=== PATIENT | female | born 1995 | race Two or more races ===

== ENCOUNTER 2018-01-17 03:39 | Emergency (ER) | payer BC ==
[~2018-01-17] VITALS: Ht 149.9 cm; Wt 79.8 kg
[2018-01-17 04:13] LABS: BASO # 0.1 x10^3/uL (0.0-0.2); BASO % 1 % (0-3); EOS # 0.2 x10^3/uL (0.0-0.7); EOS % 2 % (0-3); HEMATOCRIT 41.1 % (36.0-47.0); HEMOGLOBIN 13.9 g/dL (12.0-15.5); LYMPH # 3.4 x10^3/uL (1.0-4.8); LYMPH % 31 % (24-48); MEAN CORPUSCULAR HEMOGLOBIN 27 pg (25-35); MEAN CORPUSCULAR HGB CONC 34 g/dL (31-37); MEAN CORPUSCULAR VOLUME 79 fL (79-100); MONO # 0.7 x10^3/uL (0.0-1.1); MONO % 6 % (0-9); NEUT # 6.6 x10^3uL (1.8-7.7); NEUT % 61 % (31-73); PLATELET COUNT 328 x10^3/uL (140-400); RED BLOOD COUNT 5.22 x10^6/uL (3.50-5.40); RED CELL DISTRIBUTION WIDTH 15.7 % (11.5-14.5)
[2018-01-17 04:33] LABS: CALCIUM 9.3 mg/dL (8.5-10.1); CREATININE 0.9 mg/dL (0.6-1.0); GFR 77.6; POTASSIUM 3.5 mmol/L (3.5-5.1)
[2018-01-17 04:39] LABS: ALBUMIN 3.8 g/dL (3.4-5.0); ALBUMIN/GLOBULIN RATIO 0.8 (1.0-1.7); TOTAL BILIRUBIN 0.2 mg/dL (0.2-1.0); TOTAL PROTEIN 8.4 g/dL (6.4-8.2)
[2018-01-17 04:53] VITALS: BP 124/73
[2018-01-17] MEDS ORDERED: OMEP40CA5 PO (04:57)
--- NOTE | 2018-01-17 05:08 | PHYS DOC ---
Past Medical History Past Medical History: No Pertinent History Past Surgical History: No Surgical History Alcohol Use: Occasionally Drug Use: None Adult General Chief Complaint Chief Complaint: CHEST PAIN HPI HPI Patient is a 22 year old female presenting with complaints of chest pain as well as back pain. She's had this for 2 or 3 days it feels like a pressure that radiates to her back due to a chief she's been under a lot of stress she lost her mother as well as a 5-month-old baby in the last couple of months. She says she is not having any pleuritic pain and really not that much shortness of breath at all. It is just pressure there is some burning sensation as well in the upper abdomen She is newly has been for approximately 3 weeks she does not recall her exact last menstrual period tried to give Valium from [place] until they go that they picked up a few months back but she threw it up Review of Systems Review of Systems Constitutional: Denies fever or chills [] Eyes: Denies change in visual acuity, redness, or eye pain [] HENT: Denies nasal congestion or sore throat [] [] Integument: Denies rash or skin lesions [] Neurologic: Denies headache, focal weakness or sensory changes [] Endocrine: Denies polyuria or polydipsia [] All other systems were reviewed and found to be within normal limits, except as documented in this note. Current Medications Current Medications Current Medications Medications (Trade) Dose Ordered Sig/Mathew Start Time Stop Time Status Last Admin Dose Admin Lorazepam (Ativan) 1 mg 1X ONCE 01/17/18 04:30 01/17/18 04:31 DC 01/17/18 04:22 1 MG Allergies Allergies Allergies Coded Allergies Type Severity Reaction Last Updated Verified No Known Drug Allergies 01/17/18 No Physical Exam Physical Exam Constitutional: Well developed, well nourished, no acute distress, non-toxic appearance. [] HENT: Normocephalic, atraumatic, bilateral external ears normal, oropharynx moist, no oral exudates, nose normal. [] Eyes: PERRLA, EOMI, conjunctiva normal, no discharge. [] Neck: Normal range of motion, no tenderness, supple, no stridor. [] Cardiovascular:Heart rate regular rhythm, no murmur [] Lungs & Thorax: Bilateral breath sounds clear to auscultation [] Abdomen: Bowel sounds normal, soft, mild epigastric tenderness, no masses, no pulsatile masses. [] Skin: Warm, dry, no erythema, no rash. [] Back: No tenderness, no CVA tenderness. [] Extremities: No tenderness, no cyanosis, no clubbing, ROM intact, no edema. [] Neurologic: Alert and oriented X 3, normal motor function, normal sensory function, no focal deficits noted. [] Psychologic: Affect normal, judgement normal, anxiety noted Current Patient Data Vital Signs Vital Signs Date Time Temp Pulse Resp B/P (MAP) Pulse Ox O2 Delivery O2 Flow Rate FiO2 01/17/18 03:57 98.8 97 26 163/92 (115) 100 Room Air 98.8 Lab Values Laboratory Tests Test 01/17/18 04:03 White Blood Count 11.0 x10^3/uL (4.0-11.0) Red Blood Count 5.22 x10^6/uL (3.50-5.40) Hemoglobin 13.9 g/dL (12.0-15.5) Hematocrit 41.1 % (36.0-47.0) Mean Corpuscular Volume 79 fL (79-100) Mean Corpuscular Hemoglobin 27 pg (25-35) Mean Corpuscular Hemoglobin Concent 34 g/dL (31-37) Red Cell Distribution Width 15.7 % (11.5-14.5) H Platelet Count 328 x10^3/uL (140-400) Neutrophils (%) (Auto) 61 % (31-73) Lymphocytes (%) (Auto) 31 % (24-48) Monocytes (%) (Auto) 6 % (0-9) Eosinophils (%) (Auto) 2 % (0-3) Basophils (%) (Auto) 1 % (0-3) Neutrophils # (Auto) 6.6 x10^3uL (1.8-7.7) Lymphocytes # (Auto) 3.4 x10^3/uL (1.0-4.8) Monocytes # (Auto) 0.7 x10^3/uL (0.0-1.1) Eosinophils # (Auto) 0.2 x10^3/uL (0.0-0.7) Basophils # (Auto) 0.1 x10^3/uL (0.0-0.2) D-Dimer (Guera) 0.51 ug/mlFEU (0.00-0.50) H Maternal Serum HCG Beta Subunit 7364 mIU/mL (0-5) H Sodium Level 137 mmol/L (136-145) Potassium Level 3.5 mmol/L (3.5-5.1) Chloride Level 102 mmol/L (98-107) Carbon Dioxide Level 26 mmol/L (21-32) Anion Gap 9 (6-14) Blood Urea Nitrogen 9 mg/dL (7-20) Creatinine 0.9 mg/dL (0.6-1.0) Estimated GFR (Cockcroft-Gault) 77.6 BUN/Creatinine Ratio 10 (6-20) Glucose Level 183 mg/dL (70-99) H Calcium Level 9.3 mg/dL (8.5-10.1) Total Bilirubin 0.2 mg/dL (0.2-1.0) Aspartate Amino Transferase (AST) 19 U/L (15-37) Alanine Aminotransferase (ALT) 33 U/L (14-59) Alkaline Phosphatase 107 U/L (46-116) Troponin I Quantitative < 0.017 ng/mL (0.000-0.055) Total Protein 8.4 g/dL (6.4-8.2) H Albumin 3.8 g/dL (3.4-5.0) Albumin/Globulin Ratio 0.8 (1.0-1.7) L Lipase 121 U/L (73-393) Laboratory Tests 01/17/18 04:03 Laboratory Tests 01/17/18 04:03 EKG EKG [] Interpretation Time: Normal sinus rhythm rate is 68 no acute ischemic changes noted interpreted by me time of encounter Radiology/Procedures Radiology/Procedures [] Impressions: X-ray by my read negative acute normal bones normal heart normal lungs Course & Med Decision Making Course & Med Decision Making Pertinent Labs and Imaging studies reviewed. (See chart for details) []22-year-old female who is newly presenting with chest pain pressure radiating to the back for the last 2 or 3 days associated with significant component of anxiety. In the emergency room I did order initial lab work prior to being notified about this patient's status. I did give a milligram of Ativan as well she slept comfortably when I woke up at 5 AM she said that she had no further symptoms she was feeling much better her heart rate was in the 70s her oxygen level remained in the mid to high 90s throughout no tachycardia and no hypoxia. She does not having any pleuritic pain. I had ordered a d-dimer upfront and it was 0.51 but because she is this is very likely to be within normal range for her. I have very low suspicion for PE in addition the perc level is negative for this patient as well. I feel that given her early the risk of radiation is greater than 8 chance of a missed PE. I did review this risk-benefit ratio with her and she understands. Prescription for omeprazole and Tylenol recommendation was given. Ultimately I suspect a component of anxiety as well as GERD Dragon Disclaimer Dragon Disclaimer This electronic medical record was generated, in whole or in part, using a voice recognition dictation system. Departure Departure Impression: Primary Impression: Chest pain Disposition: 01 HOME, SELF-CARE Condition: STABLE Patient Instructions: Chest Pain (Nonspecific), [id number] Scripts Omeprazole (OMEPRAZOLE) 40 Mg Capsule.dr 1 CAP PO DAILY, #30 CAP 0 Refills Prov: SCARLETT HERRING MD 01/17/18 SCARLETT HERRING MD Jan 17, 2018 05:08
--- NOTE | 2018-01-17 07:41 | RAD ---
Portable chest, 01/17/2018: HISTORY: Chest pain The heart size and pulmonary vascularity are normal. No pulmonary infiltrate is seen. There is no evidence of pleural fluid. IMPRESSION: No acute cardiopulmonary abnormality is detected. Electronically signed by: Amaury Lynne MD (01/17/2018 7:38 AM) [facility]
--- NOTE | 2018-01-18 06:12 | EKG ---
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
== END 2018-01-17 05:16 | disposition home or self-care (01) ==
LOC: ER 03:39
DX: O26.891 Other specified pregnancy related conditions, first trimester (principal); R07.89 Other chest pain; R10.13 Epigastric pain; Z3A.01 Less than 8 weeks gestation of pregnancy
CPT/HCPCS: 36415; 71045; 80053; 83690; 84484; 84702; 85025; 85379; 93005; 96374; 99285; J2060

== ENCOUNTER → 2019-01-30 | Outpatient (CLI) | payer SELFPAY ==
[2018-05-07 15:00] VITALS: BP 121/71
[~2019-01-30] MED LIST: CEPH-264 PO; OMEP40CA5 PO
[2019-01-30 13:52] LABS: BASO # 0.1 x10^3/uL (0.0-0.2); BASO % 1 % (0-3); EOS # 0.4 x10^3/uL (0.0-0.7); EOS % 5 % (0-3); HEMATOCRIT 40.9 % (36.0-47.0); LYMPH # 2.3 x10^3/uL (1.0-4.8); LYMPH % 27 % (24-48); MEAN CORPUSCULAR HEMOGLOBIN 28 pg (25-35); MEAN CORPUSCULAR HGB CONC 34 g/dL (31-37); MEAN CORPUSCULAR VOLUME 81 fL (79-100); MONO # 0.5 x10^3/uL (0.0-1.1); MONO % 6 % (0-9); NEUT # 5.1 x10^3/uL (1.8-7.7); NEUT % 61 % (31-73); PLATELET COUNT 316 x10^3/uL (140-400); RED BLOOD COUNT 5.08 x10^6/uL (3.50-5.40); RED CELL DISTRIBUTION WIDTH 14.4 % (11.5-14.5); WHITE BLOOD COUNT 8.4 x10^3/uL (4.0-11.0)
[2019-01-30 14:04] LABS: ALBUMIN 3.5 g/dL (3.4-5.0); ALBUMIN/GLOBULIN RATIO 0.8 (1.0-1.7); CALCIUM 9.1 mg/dL (8.5-10.1); CREATININE 0.8 mg/dL (0.6-1.0); GFR 88.1; POTASSIUM 3.8 mmol/L (3.5-5.1); TOTAL BILIRUBIN 0.3 mg/dL (0.2-1.0); TOTAL PROTEIN 7.9 g/dL (6.4-8.2)
[2019-01-30 14:49] LABS: FREE T4 1.13 ng/dL (0.76-1.46); THYROID STIM HORMONE (TSH) 2.177 uIU/mL (0.358-3.74)
[2019-01-31 00:11] LABS: HEMOGLOBIN A1C 5.3 % (4.8-5.6)
[2019-01-31 02:11] LABS: ESTRADIOL LEVEL 60.6 pg/mL (.)
[2019-02-02 14:13] LABS: TESTOSTERONE FREE 0.99 ng/dL (0.10-0.85)
== END | disposition home or self-care (01) ==
LOC: LAB 13:23
PROVIDERS: ATTEND Obstetrics & Gynecology
DX: R68.82 Decreased libido (principal); R94.6 Abnormal results of thyroid function studies; R73.09 Other abnormal glucose
CPT/HCPCS: 36415; 80053; 82627; 82670; 83036; 84402; 84403; 84439; 84443; 85025

== ENCOUNTER → 2019-11-18 | Outpatient (CLI) | payer OTHER ==
[2018-05-07 15:00] VITALS: BP 121/71
[~2019-11-18] MED LIST changes: +OMEP40CA45 PO; -OMEP40CA5 PO
== END | disposition home or self-care (01) ==
LOC: LAB 10:53
PROVIDERS: ATTEND Internal Medicine Pulmonary Disease
DX: Z20.828 Contact with and (suspected) exposure to other viral communicable diseases (principal); R51 Headache; R05 Cough
CPT/HCPCS: U0003-CS

== ENCOUNTER → 2020-02-26 | Outpatient (CLI) | payer OTHER ==
[2018-05-07 15:00] VITALS: BP 121/71
== END ==
LOC: LAB 13:43
PROVIDERS: ATTEND Obstetrics & Gynecology
DX: Z32.01 Encounter for pregnancy test, result positive (principal)
CPT/HCPCS: 36415; 84702

== ENCOUNTER 2020-03-23 08:04 | Emergency (ER) | payer OTHER ==
[~2020-03-23] VITALS: Ht 149.9 cm; Wt 81.0 kg
[2020-03-23 08:20] VITALS: BP 124/67
[2020-03-23] MEDS ORDERED: FAMOTIDINE 20 MG/2 ML VIAL IVP ONE (08:30)
[2020-03-23] MEDS ORDERED: IV NORMAL SALINE 1000ML BAG 1,000 ML IV ONE (08:30)
[2020-03-23] MEDS ORDERED: ONDANSETRON PF 4 MG/2 ML VIAL. IVP ONE (08:30)
[2020-03-23 08:39] LABS: BILIRUBIN,URINE NEGATIVE (NEG); CLARITY,URINE CLEAR; COLOR,URINE YELLOW; NITRITE,URINE NEGATIVE (NEG); PROTEIN,URINE NEGATIVE (NEG-TRACE); UROBILINOGEN,URINE 0.2 mg/dL (0.2 mg/dL)
[2020-03-23 08:41] LABS: BASO # 0.1 x10^3/uL (0.0-0.2); BASO % 1 % (0-3); EOS # 0.2 x10^3/uL (0.0-0.7); EOS % 1 % (0-3); HEMATOCRIT 40.9 % (36.0-47.0); HEMOGLOBIN 14.1 g/dL (12.0-15.5); LYMPH % 28 % (24-48); MEAN CORPUSCULAR HEMOGLOBIN 29 pg (25-35); MEAN CORPUSCULAR HGB CONC 35 g/dL (31-37); MEAN CORPUSCULAR VOLUME 83 fL (79-100); MONO # 0.6 x10^3/uL (0.0-1.1); MONO % 6 % (0-9); NEUT % 65 % (31-73); PLATELET COUNT 290 x10^3/uL (140-400); RED BLOOD COUNT 4.94 x10^6/uL (3.50-5.40); RED CELL DISTRIBUTION WIDTH 13.7 % (11.5-14.5); WHITE BLOOD COUNT 10.9 x10^3/uL (4.0-11.0)
[2020-03-23 08:50] LABS: BACTERIA,URINE 0 /HPF (0-FEW); RBC,URINE 0 /HPF (0-2); WBC,URINE 0 /HPF (0-4)
[2020-03-23 08:50] LABS: CALCIUM 9.3 mg/dL (8.5-10.1); CREATININE 0.7 mg/dL (0.6-1.0); POTASSIUM 3.6 mmol/L (3.5-5.1)
[2020-03-23 08:56] LABS: ALBUMIN 3.8 g/dL (3.4-5.0); ALBUMIN/GLOBULIN RATIO 0.8 (1.0-1.7); TOTAL BILIRUBIN 0.4 mg/dL (0.2-1.0); TOTAL PROTEIN 8.3 g/dL (6.4-8.2)
--- NOTE | 2020-03-23 09:26 | PHYS DOC ---
Past Medical History Past Medical History: Additional Past Medical Histor: Past Surgical History: Cholecystectomy, Smoking Status: Never Smoker Alcohol Use: None Drug Use: None General Adult EDM: Chief Complaint: ABDOMINAL PAIN IN HPI: HPI: Patient is a 24 year old female who presents with abdominal pain in . She is 7 weeks based on LMP of January 29, 2020. Her first OB appointment is scheduled for tomorrow with Dr. Bowen ([facility]), She describes cramping abdominal pain of 6/10 that has been ongoing for 3 weeks. She describes a pulsing/pounding headache with pain of 9/10 that has been constant for 3 weeks. She has associated shortness of breath and dizziness. She took ibuprofen before someone told her not to take it during . She is unable to take tylenol because it makes her cough and short of breath so she has had minimal pain relief options. Reports lots of nausea and vomiting, more so than in pr evious pregnancies. Patient and also report that her stomach seems to have enlarged at a quicker pace than previous pregnancies. No history of loss of consciousness, falls, or trauma. No vaginal bleeding. No discharge. Review of Systems: Review of Systems: Constitutional: Denies fever or chills Eyes: Denies redness or eye pain, denies change in vision HENT: Denies nasal congestion or sore throat Respiratory: Denies cough, Reports shortness of breath Cardiovascular: Denies chest pain or palpitations GI: Denies abdominal pain, nausea, or vomiting : Denies dysuria or hematuria, Denies vaginal bleeding or discharge Musculoskeletal: Denies back pain or joint pain Integument: Denies rash or skin lesions Neurologic: Denies focal weakness or sensory changes, Reports headache Complete systems were reviewed and found to be within normal limits, except as documented in this note. Current Medications: Current Medications Medications (Trade) Dose Ordered Sig/Mathew Start Time Stop Time Status Last Admin Dose Admin Famotidine (Pepcid Vial) 20 mg 1X ONCE 03/23/20 08:30 03/23/20 08:31 DC 03/23/20 08:59 20 MG Ondansetron HCl (Zofran) 4 mg 1X ONCE 03/23/20 08:30 03/23/20 08:31 DC 03/23/20 08:59 4 MG Sodium Chloride 1,000 ml @ 1,000 mls/hr 1X ONCE 03/23/20 08:30 03/23/20 09:29 03/23/20 08:59 1,000 MLS/HR Allergies: Allergies: Allergies Coded Allergies Type Severity Reaction Last Updated Verified No Known Drug Allergies 05/06/18 No Physical Exam: PE: Constitutional: Well developed, well nourished, no acute distress, non-toxic appearance HENT: Normocephalic, atraumatic Eyes: PERRL, EOMI, conjunctiva normal, no discharge Neck: Normal range of motion, no tenderness, supple Lungs & Thorax: No respiratory distress, equal chest rise and fall Abdomen: Soft, no tenderness Skin: Warm, dry, no erythema, no rash Back: No tenderness, no CVA tenderness Extremities: No tenderness, ROM intact, no edema Neurologic: Alert and oriented X 3, normal motor function, normal sensory function, no focal deficits noted Psychologic: Affect normal, judgment normal Current Patient Data: Labs: Laboratory Tests Test 03/23/20 08:17 03/23/20 08:23 03/23/20 08:35 Urine Collection Type Unknown Urine Color Yellow Urine Clarity Clear Urine pH 6.0 (<5.0-8.0) Urine Specific [place] 1.010 (1.000-1.030) Urine Protein Negative mg/dL (NEG-TRACE) Urine Glucose (UA) Negative mg/dL (NEG) Urine Ketones (Stick) Negative mg/dL (NEG) Urine Blood Negative (NEG) Urine Nitrite Negative (NEG) Urine Bilirubin Negative (NEG) Urine Urobilinogen Dipstick 0.2 mg/dL (0.2 mg/dL) Urine Leukocyte Esterase Negative (NEG) Urine RBC 0 /HPF (0-2) Urine WBC 0 /HPF (0-4) Urine Squamous Epithelial Cells Few /LPF Urine Bacteria 0 /HPF (0-FEW) Urine Mucus Mod /LPF POC Urine HCG, Qualitative Hcg positive (Negative) White Blood Count 10.9 x10^3/uL (4.0-11.0) Red Blood Count 4.94 x10^6/uL (3.50-5.40) Hemoglobin 14.1 g/dL (12.0-15.5) Hematocrit 40.9 % (36.0-47.0) Mean Corpuscular Volume 83 fL (79-100) Mean Corpuscular Hemoglobin 29 pg (25-35) Mean Corpuscular Hemoglobin Concent 35 g/dL (31-37) Red Cell Distribution Width 13.7 % (11.5-14.5) Platelet Count 290 x10^3/uL (140-400) Neutrophils (%) (Auto) 65 % (31-73) Lymphocytes (%) (Auto) 28 % (24-48) Monocytes (%) (Auto) 6 % (0-9) Eosinophils (%) (Auto) 1 % (0-3) Basophils (%) (Auto) 1 % (0-3) Neutrophils # (Auto) 7.0 x10^3/uL (1.8-7.7) Lymphocytes # (Auto) 3.0 x10^3/uL (1.0-4.8) Monocytes # (Auto) 0.6 x10^3/uL (0.0-1.1) Eosinophils # (Auto) 0.2 x10^3/uL (0.0-0.7) Basophils # (Auto) 0.1 x10^3/uL (0.0-0.2) Sodium Level 133 mmol/L (136-145) L Potassium Level 3.6 mmol/L (3.5-5.1) Chloride Level 100 mmol/L (98-107) Carbon Dioxide Level 25 mmol/L (21-32) Anion Gap 8 (6-14) Blood Urea Nitrogen 5 mg/dL (7-20) L Creatinine 0.7 mg/dL (0.6-1.0) Estimated GFR (Cockcroft-Gault) 102.0 BUN/Creatinine Ratio 7 (6-20) Glucose Level 78 mg/dL (70-99) Calcium Level 9.3 mg/dL (8.5-10.1) Magnesium Level 2.0 mg/dL (1.8-2.4) Total Bilirubin 0.4 mg/dL (0.2-1.0) Aspartate Amino Transferase (AST) 16 U/L (15-37) Alanine Aminotransferase (ALT) 28 U/L (14-59) Alkaline Phosphatase 78 U/L (46-116) Total Protein 8.3 g/dL (6.4-8.2) H Albumin 3.8 g/dL (3.4-5.0) Albumin/Globulin Ratio 0.8 (1.0-1.7) L Lipase 65 U/L (73-393) L Laboratory Tests 03/23/20 08:35 Laboratory Tests 03/23/20 08:35 Vital Signs: Vital Signs Date Time Temp Pulse Resp B/P (MAP) Pulse Ox O2 Delivery O2 Flow Rate FiO2 03/23/20 08:20 98.2 92 16 124/67 (86) 100 Room Air 98.2 Course & Med Decision Making: Course & Med Decision Making Pertinent Labs and Imaging studies reviewed. (See chart for details) Patient is a 24 year old female who presents with cramping abdominal pain in , constant headache, shortness of breath, and dizziness for 3 weeks. She is 7 weeks based on LMP with history of high risk pregnancies. U/S and pelvic exam performed. Labs ordered. Dragon Disclaimer: Dragon Disclaimer: This electronic medical record was generated, in whole or in part, using a voice recognition dictation system. Departure Departure Impression: Primary Impression: Abdominal pain during Qualified Codes: O26.891 - Other specified related conditions, first trimester; R10.9 - Unspecified abdominal pain Additional Impressions: Dizziness Headache Qualified Codes: R51.9 - Headache, unspecified Bacterial vaginosis in Disposition: 01 DC HOME SELF CARE/HOMELESS Condition: STABLE Referrals: Trisha GARRIDO MD (PCP) Patient Instructions: Abdominal Pain During , [id number], Bacterial Vaginosis, [id number], Dizziness, [id number]-[id number], Headache, FAQs Scripts Metronidazole (FLAGYL) 500 Mg Tablet 500 MG PO BID for Vaginosis, #14 TAB Prov: ROCÍO FLOREZ DO 03/23/20 Ondansetron (ONDANSETRON ODT) 4 Mg Tab.rapdis 1 TAB PO PRN Q6-8HRS PRN for NAUSEA, #16 TAB Prov: ROCÍO FLOREZ DO 03/23/20 ROCÍO FLOREZ DO Mar 23, 2020 09:26
--- NOTE | 2020-03-23 10:13 | RAD ---
EXAM: First Trimester OB Ultrasound INDICATION: Reason: abdominal pain in preg 8 weeks / Spl. Instructions: / History: TECHNIQUE: Real-time first trimester obstetrical ultrasound was performed with permanent freeze-frame documentation. COMPARISON: None. FINDINGS: GESTATIONAL SAC: Teardrop shaped deformity to the gestational sac is present. POLE: Unremarkable. Yolk sac visualized. CROWN RUMP LENGTH: 2.2 cm HEART RATE: 169 bpm PLACENTA: Too early to adequately assess. MATERNAL UTERUS: Uterus measures 11 x 6.9 x 6.2 cm. Cervical nabothian cysts are incidentally noted. MATERNAL ADNEXA: Normal ovaries. Right ovary measures 2.3 x 1.5 x 1.9 cm and demonstrates normal blood flow. Left ovary measures 3.8 x 2.0 x 2.0 cm, only seen transabdominally. Internal blood flow not adequately assessed on transabdominal imaging but no enlargement of the ovary is seen to suggest torsion. AGE/DATES: Gestational Age by LMP: 7 weeks 5 days Gestational Age by US: 8 weeks 6 days EDC by LMP: November 04, 2020 EDC by US: October 27, 2020 IMPRESSION: Live intrauterine first trimester OB ultrasound. Estimated gestational age of 8 weeks 6 days and EDC of October 27, 2020. Electronically signed by: Parul Mon MD (03/23/2020 10:10 AM) [id number]
[2020-03-23] MEDS ORDERED: METR500T PO (11:13)
[2020-03-23] MEDS ORDERED: ONDA4TAB12 PO (11:13)
[2020-03-24 21:06] LABS: GC PROBE Negative (Negative)
== END 2020-03-23 11:37 | disposition home or self-care (01) ==
LOC: ER 08:04
DX: O23.591 Infection of other part of genital tract in pregnancy, first trimester (principal); R42 Dizziness and giddiness; R51.9 Headache, unspecified; R06.02 Shortness of breath; R10.9 Unspecified abdominal pain; Z90.49 Acquired absence of other specified parts of digestive tract; Z98.890 Other specified postprocedural states; Z3A.01 Less than 8 weeks gestation of pregnancy
CPT/HCPCS: 36415; 76801; 76817; 80053; 81001; 81025; 83690; 83735; 84702; 85025; 87491; 87591; 96361; 96374; 96375; 99284; J2405; J3490; J7030; Q0111